=== PATIENT | male | born 1975 | race Two or more races ===

== ENCOUNTER 2021-04-04 15:06 | Inpatient (IN) | payer OTHER ==
[~2021-04-04] VITALS: Ht 172.7 cm; Wt 137.0 kg
[2021-04-04] MEDS: DOCUSATE SODIUM 100 MG CAPSULE PO SCH (09:00)
[2021-04-04] MEDS ORDERED: VANCOMYCIN HCL 1 GM/D5% WATER 200 ML IV ONE (16:30)
[2021-04-04] MEDS ORDERED: PIPERACILLIN/TAZO 3.375 GM/D5W 50 ML IV ONE (16:30)
[2021-04-04] MEDS ORDERED: 0.9% SODIUM CHLORIDE 10 ML SYRINGE IVP PRN (16:30)
[2021-04-04 17:07] LABS: BASOPHILS % (AUTO) 0.4 % (0.0-2.0); EOSINOPHILS % (AUTO) 0.5 % (1.0-6.0); HEMATOCRIT 26.7 % (41-53); HEMOGLOBIN 8.7 g/dL (13.5-17.5); LYMPHOCYTES # (AUTO) 0.8 K/uL (1.0-4.8); LYMPHOCYTES % (AUTO) 3.7 % (22.0-44.0); MEAN CORPUSCULAR HEMOGLOBIN 31.6 pg (26.0-34.0); MEAN CORPUSCULAR HGB CONC 32.7 G/dL (31.0-37.0); MEAN CORPUSCULAR VOLUME 97 fL (80-100); MONOCYTES # (AUTO) 1.2 K/uL (0.1-1.0); MONOCYTES % (AUTO) 5.6 % (2.0-9.0); NEUTROPHILS # (AUTO) 18.8 K/uL (1.8-7.7); PLATELET COUNT (AUTO) 346 K/uL (150-450); RED BLOOD CELL COUNT(AUTO) 2.77 MIL/uL (4.50-5.90); RED CELL DISTRIBUTION WIDTH 15.8 % (11.5-14.5)
[2021-04-04 17:08] LABS: NEUTROPHILS % (AUTO) 89.8 % (40.0-70.0)
[2021-04-04 17:24] LABS: ALBUMIN 2.6 g/dL (3.4-5.0); BILIRUBIN,TOTAL 0.7 mg/dL (0.1-1.0); CALCIUM, TOTAL 9.7 mg/dL (8.8-10.5); CREATININE 18.17 mg/dL (0.60-1.30); POTASSIUM 4.6 mmol/L (3.5-5.1); TOTAL PROTEIN, SERUM 7.7 g/dL (6.4-8.2)
[2021-04-04 17:41] LABS: INR 1.1 (0.9-1.1); PROTHROMBIN TIME 11.2 SEC (9.4-11.6)
[2021-04-04] MEDS ORDERED: ALBUTEROL SULFATE 2.5 MG/0.5 ML NEB SOLUTION NEB PRN (18:00)
[2021-04-04] MEDS ORDERED: IPRATROPIUM BROMIDE 0.5 MG/2.5 ML NEB SOLUTION NEB PRN (18:00)
[2021-04-04] MEDS ORDERED: ZOLPIDEM TARTRATE 5 MG TABLET PO PRN (18:00)
[2021-04-04] MEDS ORDERED: HYDROCODONE/ACETAMINOPHEN 5-325 MG TABLET PO PRN (18:00)
[2021-04-04] MEDS ORDERED: SODIUM CHLORIDE 0.9% 100 ML ONE (18:00)
[2021-04-04] MEDS ORDERED: IOHEXOL 350 MG/ML 150 ML VIAL ONE (18:00)
[2021-04-04] MEDS ORDERED: ACETAMINOPHEN 325 MG TABLET PO PRN (18:00)
[2021-04-04] MEDS ORDERED: BISACODYL 10 MG RECTAL RECTAL SUPPOSITORY PR PRN (18:00)
[2021-04-04] MEDS ORDERED: MAGNESIUM HYDROXIDE SUSPENSION 30 ML UDCUP PO PRN (18:00)
[2021-04-04] MEDS ORDERED: ONDANSETRON HCL 4 MG/2 ML VIAL IVP PRN (18:00)
[2021-04-04 18:15] LABS: COVID AG,FIA SOURCE NASOPHARYNGEAL
[2021-04-04] MEDS ORDERED: BUPIVACAINE HCL/PF 0.25% 30 ML VIAL ONE (20:29)
[2021-04-04] MEDS ORDERED: SODIUM CL IRRIG SOLN BAG 3,000 ML IRRIG ONE (20:29)
[2021-04-04] MEDS ORDERED: BUPIVACAINE HCL/PF 0.5% 30 ML VIAL ONE (20:29)
[2021-04-04] MEDS ORDERED: SODIUM CHLORIDE 0.9% 1,000 ML ONE (20:36)
[2021-04-04] MEDS ORDERED: CHLORHEXIDINE GLUCONATE 4% 118 ML TOPICAL LIQUID TP ONE ×2 (21:15→21:27)
[2021-04-04 22:25] VITALS: BP 147/62
[2021-04-04] MEDS: MORPHINE SULFATE 2 MG/ML SYRINGE IVP PRN (22:30)
[2021-04-04] MEDS: HEPARIN SODIUM,PORCINE 5,000 UNITS/ML VIAL SQ SCH (23:45)
[2021-04-05] MEDS: MORPHINE SULFATE 2 MG/ML SYRINGE IVP PRN ×4 (00:36→22:33)
[2021-04-05 04:15] VITALS: BP 103/38
[2021-04-05] MEDS ORDERED: ZOLPIDEM TARTRATE 5 MG TABLET PO PRN (04:15)
[2021-04-05] MEDS ORDERED: PIPERACILLIN/TAZO 3.375 GM/D5W 50 ML IV SCH (04:15)
[2021-04-05] MEDS ORDERED: BISACODYL 10 MG RECTAL RECTAL SUPPOSITORY PR PRN (04:15)
[2021-04-05] MEDS ORDERED: IPRATROPIUM BROMIDE 0.5 MG/2.5 ML NEB SOLUTION NEB PRN (04:15)
[2021-04-05] MEDS ORDERED: MAGNESIUM HYDROXIDE SUSPENSION 30 ML UDCUP PO PRN (04:15)
[2021-04-05] MEDS ORDERED: ONDANSETRON HCL 4 MG/2 ML VIAL IVP PRN (04:15)
[2021-04-05] MEDS ORDERED: ACETAMINOPHEN 325 MG TABLET PO PRN (04:15)
[2021-04-05] MEDS ORDERED: ALBUTEROL SULFATE 2.5 MG/0.5 ML NEB SOLUTION NEB PRN (04:15)
[2021-04-05] MEDS ORDERED: SUGAMMADEX SODIUM 200 MG/2 ML VIAL IVP ONE (05:28)
[2021-04-05] MEDS ORDERED: PHENYLEPHRINE HCL 10 MG/ML VIAL IVP ONE (05:28)
[2021-04-05] MEDS ORDERED: ROCURONIUM BROMIDE 10 MG/ML 5 ML VIAL IVP ONE (05:28)
[2021-04-05] MEDS ORDERED: PROPOFOL 1% 20 ML VIAL IVP ONE (05:28)
[2021-04-05] MEDS ORDERED: ONDANSETRON HCL 4 MG/2 ML VIAL IVP ONE (05:28)
[2021-04-05] MEDS ORDERED: LIDOCAINE/PF 2% 5 ML VIAL IM ONE (05:28)
[2021-04-05] MEDS ORDERED: VANCOMYCIN HCL 1 GM/D5% WATER 200 ML IV PRN (06:30)
[2021-04-05] MEDS ORDERED: PIPERACILLIN SODIUM/TAZOBACTAM 0.75 GM in DEXTROSE 5%-WATER 50 ML IV PRN (06:30)
[2021-04-05] MEDS: PIPERACILLIN SODIUM/TAZOBACTAM 2.25 GM in DEXTROSE 5%-WATER 50 ML IV SCH ×2 (06:42→22:32)
[2021-04-05] MEDS ORDERED: VANCOMYCIN HCL 1 GM/D5% WATER 200 ML IV ONE (07:00)
[2021-04-05 07:47] VITALS: BP 91/52
[2021-04-05] MEDS ORDERED: HEPARIN SODIUM,PORCINE 5,000 UNITS/ML VIAL SQ SCH (08:00)
[2021-04-05] MEDS ORDERED: PANTOPRAZOLE SODIUM 40 MG/VIAL IVP SCH (09:00)
[2021-04-05] MEDS: DOCUSATE SODIUM 100 MG CAPSULE PO SCH ×2 (09:00→21:00)
[2021-04-05] MEDS: HEPARIN SODIUM,PORCINE 5,000 UNITS/ML VIAL SQ SCH ×2 (09:03→15:05)
[2021-04-05] MEDS: PANTOPRAZOLE SODIUM 40 MG/VIAL IVP SCH (09:03)
[2021-04-05] MEDS: OxyCODONE HCL/ACETAMINOPHEN 5-325 MG TABLET PO PRN ×2 (09:48→15:05)
[2021-04-05 11:25] VITALS: BP 101/48
[2021-04-05] MEDS: SEVELAMER CARBONATE 800 MG TABLET PO SCH ×2 (12:15→17:52)
[2021-04-05] MEDS: VITAMIN B COMP/VIT C/FOLIC ACID CAPSULE PO SCH (12:15)
[2021-04-05 16:00] VITALS: BP 124/59
[2021-04-05 17:05] LABS: BASOPHILS % (AUTO) 0.9 % (0.0-2.0); EOSINOPHILS % (AUTO) 2.1 % (1.0-6.0); HEMATOCRIT 21.4 % (41-53); HEMOGLOBIN 7.1 g/dL (13.5-17.5); LYMPHOCYTES # (AUTO) 1.2 K/uL (1.0-4.8); LYMPHOCYTES % (AUTO) 8.4 % (22.0-44.0); MEAN CORPUSCULAR HEMOGLOBIN 32.1 pg (26.0-34.0); MEAN CORPUSCULAR HGB CONC 33.1 G/dL (31.0-37.0); MEAN CORPUSCULAR VOLUME 97 fL (80-100); MONOCYTES # (AUTO) 0.9 K/uL (0.1-1.0); MONOCYTES % (AUTO) 6.2 % (2.0-9.0); NEUTROPHILS # (AUTO) 12.1 K/uL (1.8-7.7); NEUTROPHILS % (AUTO) 82.4 % (40.0-70.0); PLATELET COUNT (AUTO) 322 K/uL (150-450); RED BLOOD CELL COUNT(AUTO) 2.21 MIL/uL (4.50-5.90); RED CELL DISTRIBUTION WIDTH 15.8 % (11.5-14.5)
[2021-04-05 17:09] LABS: CREATININE 19.01 mg/dL (0.60-1.30); POTASSIUM 5.4 mmol/L (3.5-5.1)
[2021-04-05 17:14] LABS: TOTAL PROTEIN, SERUM 6.7 g/dL (6.4-8.2)
[2021-04-05] MEDS: CINACALCET HCL 30 MG TABLET PO SCH (17:52)
[2021-04-05] MEDS ORDERED: SODIUM CHLORIDE 0.9% 1,000 ML ONE (18:11)
[2021-04-05] MEDS ORDERED: DiphenhydrAMINE HCL 50 MG/ML VIAL IVP ONE (19:15)
[2021-04-06] VITALS (12 sets, daily range): BP systolic 90–134; BP diastolic 45–68
[2021-04-06] MEDS: HEPARIN SODIUM,PORCINE 5,000 UNITS/ML VIAL SQ SCH ×4 (00:15→23:43)
[2021-04-06] MEDS: MORPHINE SULFATE 2 MG/ML SYRINGE IVP PRN ×7 (00:26→22:26)
[2021-04-06 06:05] LABS: BASOPHILS % (AUTO) 0.9 % (0.0-2.0); EOSINOPHILS % (AUTO) 2.8 % (1.0-6.0); LYMPHOCYTES # (AUTO) 0.9 K/uL (1.0-4.8); LYMPHOCYTES % (AUTO) 7.7 % (22.0-44.0); MEAN CORPUSCULAR HEMOGLOBIN 31.7 pg (26.0-34.0); MEAN CORPUSCULAR HGB CONC 32.4 G/dL (31.0-37.0); MEAN CORPUSCULAR VOLUME 98 fL (80-100); MONOCYTES # (AUTO) 0.9 K/uL (0.1-1.0); MONOCYTES % (AUTO) 7.7 % (2.0-9.0); NEUTROPHILS # (AUTO) 9.5 K/uL (1.8-7.7); NEUTROPHILS % (AUTO) 80.9 % (40.0-70.0); PLATELET COUNT (AUTO) 349 K/uL (150-450); RED BLOOD CELL COUNT(AUTO) 2.03 MIL/uL (4.50-5.90); RED CELL DISTRIBUTION WIDTH 16.1 % (11.5-14.5)
[2021-04-06] MEDS ORDERED: FentaNYL CITRATE PF 100 MCG/2 ML VIAL IVP ONE (06:43)
[2021-04-06] MEDS: PIPERACILLIN SODIUM/TAZOBACTAM 2.25 GM in DEXTROSE 5%-WATER 50 ML IV SCH ×2 (06:50→18:24)
[2021-04-06 07:00] LABS: HEMATOCRIT 19.8 % (41-53); HEMOGLOBIN 6.4 g/dL (13.5-17.5)
[2021-04-06 07:10] LABS: BILIRUBIN,TOTAL 1.1 mg/dL (0.1-1.0); CALCIUM, TOTAL 8.8 mg/dL (8.8-10.5); CREATININE 9.9 mg/dL (0.60-1.30); MAGNESIUM 2.2 mg/dL (1.80-2.40); PHOSPHORUS 7.1 mg/dL (2.5-4.9); POTASSIUM 4.3 mmol/L (3.5-5.1); TOTAL PROTEIN, SERUM 7.1 g/dL (6.4-8.2)
[2021-04-06 07:22] LABS: VANCOMYCIN,RANDOM 18.5 mcg/mL (25.0-50.0)
[2021-04-06] MEDS: OxyCODONE HCL/ACETAMINOPHEN 5-325 MG TABLET PO PRN (08:16)
[2021-04-06] MEDS: SEVELAMER CARBONATE 800 MG TABLET PO SCH ×3 (08:16→18:24)
[2021-04-06] MEDS: VITAMIN B COMP/VIT C/FOLIC ACID CAPSULE PO SCH (08:16)
[2021-04-06] MEDS: PANTOPRAZOLE SODIUM 40 MG/VIAL IVP SCH (08:17)
[2021-04-06] MEDS: DOCUSATE SODIUM 100 MG CAPSULE PO SCH ×2 (08:17→21:00)
[2021-04-06] MEDS ORDERED: EPOETIN ALFA 10,000 UNITS/ML 2 ML VIAL SQ SCH (09:00)
[2021-04-06] MEDS ORDERED: SODIUM CHLORIDE 0.9% 1,000 ML ONE (10:04)
[2021-04-06] MEDS ORDERED: VANCOMYCIN HCL 1 GM/D5% WATER 200 ML IV ONE (14:00)
[2021-04-06] MEDS: CINACALCET HCL 30 MG TABLET PO SCH (19:22)
[2021-04-07 00:36] VITALS: BP 120/59
[2021-04-07] MEDS: MORPHINE SULFATE 2 MG/ML SYRINGE IVP PRN (02:02)
[2021-04-07 03:45] VITALS: BP 127/50
[2021-04-07] MEDS: PIPERACILLIN SODIUM/TAZOBACTAM 2.25 GM in DEXTROSE 5%-WATER 50 ML IV SCH (06:06)
[2021-04-07 06:47] LABS: BASOPHILS % (AUTO) 0.7 % (0.0-2.0); EOSINOPHILS % (AUTO) 3.4 % (1.0-6.0); HEMATOCRIT 24.7 % (41-53); HEMOGLOBIN 8.1 g/dL (13.5-17.5); LYMPHOCYTES # (AUTO) 1.2 K/uL (1.0-4.8); MEAN CORPUSCULAR HEMOGLOBIN 32.2 pg (26.0-34.0); MEAN CORPUSCULAR HGB CONC 32.9 G/dL (31.0-37.0); MEAN CORPUSCULAR VOLUME 98 fL (80-100); MONOCYTES # (AUTO) 0.8 K/uL (0.1-1.0); MONOCYTES % (AUTO) 8.6 % (2.0-9.0); NEUTROPHILS # (AUTO) 7.3 K/uL (1.8-7.7); NEUTROPHILS % (AUTO) 75.3 % (40.0-70.0); PLATELET COUNT (AUTO) 342 K/uL (150-450); RED BLOOD CELL COUNT(AUTO) 2.53 MIL/uL (4.50-5.90); RED CELL DISTRIBUTION WIDTH 16.1 % (11.5-14.5)
[2021-04-07 07:02] LABS: ALBUMIN 2.2 g/dL (3.4-5.0); BILIRUBIN,TOTAL 1.4 mg/dL (0.1-1.0); CALCIUM, TOTAL 8.6 mg/dL (8.8-10.5); CREATININE 7.94 mg/dL (0.60-1.30); POTASSIUM 3.9 mmol/L (3.5-5.1); TOTAL PROTEIN, SERUM 7.3 g/dL (6.4-8.2)
[2021-04-07 07:32] VITALS: BP 109/61
[2021-04-07] MEDS: SEVELAMER CARBONATE 800 MG TABLET PO SCH ×3 (08:21→18:24)
[2021-04-07] MEDS: PANTOPRAZOLE SODIUM 40 MG/VIAL IVP SCH (08:21)
[2021-04-07] MEDS: DOCUSATE SODIUM 100 MG CAPSULE PO SCH (08:22)
[2021-04-07] MEDS: HEPARIN SODIUM,PORCINE 5,000 UNITS/ML VIAL SQ SCH ×2 (08:22→16:00)
[2021-04-07] MEDS: VITAMIN B COMP/VIT C/FOLIC ACID CAPSULE PO SCH (08:22)
[2021-04-07 13:06] VITALS: BP 117/62
[2021-04-07] MEDS ORDERED: SODIUM CL IRRIG SOLN BOTTLE 250 ML IRRIG ONE (16:02)
[2021-04-07] MEDS ORDERED: SODIUM CHLORIDE 0.9% IRRIG BTL 1,000 ML IRRIG ONE (16:04)
[2021-04-07 16:48] VITALS: BP 110/64
[2021-04-07] MEDS: CINACALCET HCL 30 MG TABLET PO SCH (18:23)
[2021-04-08] MEDS ORDERED: EPOETIN ALFA 10,000 UNITS/ML VIAL SQ SCH (09:00)
== END 2021-04-07 19:45 | DRG 579 ==
LOC: EMS 15:06 → 5S 19:53
PROVIDERS: ADMIT Hospitalist; ATTEND Hospitalist
PROC: 0V950ZZ Drainage of Scrotum, Open Approach (ICD-10-PCS; 2021-04-04)
PROC: 0J9B0ZZ Drainage of Perineum Subcutaneous Tissue and Fascia, Open Approach (ICD-10-PCS; principal; 2021-04-04 21:00)
PROC: 5A1D70Z Performance of Urinary Filtration, Intermittent, Less than 6 Hours Per Day (ICD-10-PCS; 2021-04-05)
PROC: 30233N1 Transfusion of Nonautologous Red Blood Cells into Peripheral Vein, Percutaneous Approach (ICD-10-PCS; 2021-04-06)
PROC: 5A1D70Z Performance of Urinary Filtration, Intermittent, Less than 6 Hours Per Day (ICD-10-PCS; 2021-04-06)
DX: L02.215 Cutaneous abscess of perineum (principal); N18.6 End stage renal disease; E43 Unspecified severe protein-calorie malnutrition; T85.79XA Infection and inflammatory reaction due to other internal prosthetic devices, implants and grafts, initial encounter; I12.0 Hypertensive chronic kidney disease with stage 5 chronic kidney disease or end stage renal disease; N25.81 Secondary hyperparathyroidism of renal origin; R65.10 Systemic inflammatory response syndrome (SIRS) of non-infectious origin without acute organ dysfunction; Z68.42 Body mass index [BMI] 45.0-49.9, adult; L02.214 Cutaneous abscess of groin; N49.3 Fournier gangrene; D63.1 Anemia in chronic kidney disease; E11.22 Type 2 diabetes mellitus with diabetic chronic kidney disease; N49.2 Inflammatory disorders of scrotum; Z99.2 Dependence on renal dialysis; Z91.15 Patient's noncompliance with renal dialysis; E83.39 Other disorders of phosphorus metabolism; E66.9 Obesity, unspecified; N28.9 Disorder of kidney and ureter, unspecified; Y83.8 Other surgical procedures as the cause of abnormal reaction of the patient, or of later complication, without mention of misadventure at the time of the procedure; Y92.89 Other specified places as the place of occurrence of the external cause; Z20.822 Contact with and (suspected) exposure to COVID-19
CPT/HCPCS: 71045; 74177; 80053; 80202; 83605; 83735; 84100; 85014; 85018; 85025; 85610; 85730; 86850; 86900; 86901; 86923; 87040; 87070; 87081; 87205; 87340; 90935; 93005; 99291; A9575; C9113; J0885; J1200; J1644; J2270; J2370; J2405; J2543; J2704; J3010; J3370; J3490; J7030; J7050; J7060; P9016; 36415-L1; 36415-TC

== ENCOUNTER 2025-03-05 13:20 | Inpatient (IN) | payer MEDICARE, OTHER ==
[~2025-03-05] VITALS: Ht 170.2 cm; Wt 141.8 kg
[2025-03-05] MEDS ORDERED: VANCOMYCIN 1.25 GM/WATER(PEG) 250 ML IV ONE (14:15)
[2025-03-05] MEDS ORDERED: SODIUM CHLORIDE 0.9% 100 ML ONE (14:16)
[2025-03-05] MEDS ORDERED: IOHEXOL 350 MG/ML 100 ML VIAL ONE (14:16)
[2025-03-05] MEDS ORDERED: 0.9% SODIUM CHLORIDE 10 ML SYRINGE IVP ONE (14:17)
[2025-03-05 14:44] LABS: BASOPHILS % (AUTO) 0.8 % (0.0-2.0); EOSINOPHILS % (AUTO) 2.5 % (1.0-6.0); HEMATOCRIT 30.8 % (41-53); HEMOGLOBIN 10.3 g/dL (13.5-17.5); LYMPHOCYTES # (AUTO) 1.3 K/uL (1.0-4.8); LYMPHOCYTES % (AUTO) 7.5 % (22.0-44.0); MEAN CORPUSCULAR HEMOGLOBIN 32.5 pg (26.0-34.0); MEAN CORPUSCULAR HGB CONC 33.5 G/dL (31.0-37.0); MEAN CORPUSCULAR VOLUME 97 fL (80-100); MONOCYTES # (AUTO) 1.4 K/uL (0.1-1.0); MONOCYTES % (AUTO) 8.4 % (2.0-9.0); NEUTROPHILS # (AUTO) 13.8 K/uL (1.8-7.7); NEUTROPHILS % (AUTO) 80.8 % (40.0-70.0); PLATELET COUNT (AUTO) 276 K/uL (150-450); RED BLOOD CELL COUNT(AUTO) 3.19 MIL/uL (4.50-5.90); RED CELL DISTRIBUTION WIDTH 13.6 % (11.5-14.5); WHITE BLOOD COUNT (AUTO) 17.1 K/uL (4.5-11.0)
[2025-03-05 14:54] LABS: CREATININE 6.27 mg/dL (0.60-1.30); POTASSIUM 3.2 mmol/L (3.5-5.1)
[2025-03-05] MEDS: VANCOMYCIN HCL 1.25 GM in DEXTROSE 5%-WATER 250 ML IV ONE (15:11)
[2025-03-05 15:18] LABS: LACTIC ACID 1.1 mmol/L (0.4-2.0)
[2025-03-05] MEDS: *CLINICAL-MEROPENEM DOSING CLINICAL ONE (17:45)
[2025-03-05] MEDS: CLINDAMYCIN 900 MG/D5% WATER 50 ML IV SCH (18:34)
[2025-03-05] MEDS: MEROPENEM 500 MG in SODIUM CHLORIDE 0.9% 50 ML IV SCH (19:07)
[2025-03-05] MEDS ORDERED: BISACODYL 10 MG RECTAL RECTAL SUPPOSITORY PR PRN (19:45)
[2025-03-05] MEDS ORDERED: MORPHINE SULFATE 2 MG/ML SYRINGE IVP PRN (19:45)
[2025-03-05] MEDS ORDERED: MAGNESIUM HYDROXIDE SUSPENSION 30 ML UDCUP PO PRN (19:45)
[2025-03-05] MEDS ORDERED: ONDANSETRON HCL 4 MG/2 ML VIAL IVP PRN (19:45)
[2025-03-05] MEDS ORDERED: ACETAMINOPHEN 325 MG TABLET PO PRN (19:45)
[2025-03-05] MEDS ORDERED: VANCOMYCIN 1GM/WATER(PEG/NADA) 200 ML IV PRN (20:00)
[2025-03-05] MEDS: HYDROCODONE/ACETAMINOPHEN 5-325 MG TABLET PO PRN (20:33)
[2025-03-05] MEDS: ZOLPIDEM TARTRATE 5 MG TABLET PO PRN (20:33)
[2025-03-05] MEDS: DOCUSATE SODIUM 100 MG CAPSULE PO SCH (20:33)
[2025-03-05 20:44] VITALS: BP 125/72; PULSE 78; RESP 19; TEMP 98.2; O2SAT 99
[2025-03-05 20:45] VITALS: BP 125/79; PULSE 78; RESP 19; TEMP 98.2; O2SAT 98
[2025-03-06] VITALS (12 sets, daily range): BP systolic 100–171; BP diastolic 43–78; PULSE 73–93; RESP 18–19; TEMP 97.5–98.2; O2SAT 98–99
[2025-03-06] MEDS: HEPARIN SODIUM,PORCINE 5,000 UNITS/ML VIAL SQ SCH
[2025-03-06] MEDS ORDERED: SODIUM CHLORIDE 0.9% 250 ML IV ONE (02:20)
[2025-03-06] MEDS: PANTOPRAZOLE SODIUM 40 MG DR TABLET PO SCH (08:05)
[2025-03-06 09:43] LABS: BASOPHILS % (AUTO) 1.2 % (0.0-2.0); EOSINOPHILS % (AUTO) 3.6 % (1.0-6.0); HEMATOCRIT 31.9 % (41-53); HEMOGLOBIN 10.8 g/dL (13.5-17.5); LYMPHOCYTES # (AUTO) 0.9 K/uL (1.0-4.8); LYMPHOCYTES % (AUTO) 8.9 % (22.0-44.0); MEAN CORPUSCULAR HEMOGLOBIN 32.9 pg (26.0-34.0); MEAN CORPUSCULAR HGB CONC 33.8 G/dL (31.0-37.0); MEAN CORPUSCULAR VOLUME 97 fL (80-100); MONOCYTES # (AUTO) 0.5 K/uL (0.1-1.0); MONOCYTES % (AUTO) 4.3 % (2.0-9.0); NEUTROPHILS # (AUTO) 8.6 K/uL (1.8-7.7); PLATELET COUNT (AUTO) 249 K/uL (150-450); RED BLOOD CELL COUNT(AUTO) 3.28 MIL/uL (4.50-5.90); RED CELL DISTRIBUTION WIDTH 14.1 % (11.5-14.5); WHITE BLOOD COUNT (AUTO) 10.5 K/uL (4.5-11.0)
[2025-03-06] MEDS: CINACALCET HCL 30 MG TABLET PO SCH (09:45)
[2025-03-06] MEDS: FOLIC ACID/VIT B COMPLEX AND C TABLET PO SCH (09:46)
[2025-03-06 09:59] LABS: CALCIUM, TOTAL 8.9 mg/dL (8.8-10.5); CREATININE 8.24 mg/dL (0.60-1.30); POTASSIUM 3.7 mmol/L (3.5-5.1)
[2025-03-06] MEDS ORDERED: DiphenhydrAMINE HCL 50 MG/ML VIAL ONE (12:00)
[2025-03-06] MEDS: SEVELAMER CARBONATE 800 MG TABLET PO SCH (12:00)
[2025-03-06] MEDS: DiphenhydrAMINE HCL 50 MG/ML VIAL IVP PRN (14:13)
[2025-03-06] MEDS: SODIUM THIOSULFATE IV SCH (16:16)
[2025-03-06] MEDS: CONTAINER EMPTY IV SCH (16:16)
[2025-03-06] MEDS: SODIUM CHLORIDE 0.9% IV SCH (16:16)
[2025-03-06] MEDS: VANCOMYCIN 1GM/WATER(PEG/NADA) 200 ML IV ONE (17:56)
[2025-03-06] MEDS ORDERED: CONTAINER EMPTY IV SCH (20:00)
[2025-03-06] MEDS ORDERED: SODIUM THIOSULFATE IV SCH (20:00)
[2025-03-06] MEDS: HYDROCODONE/ACETAMINOPHEN 5-325 MG TABLET PO ONE (20:20)
[2025-03-07 04:12] VITALS: BP 140/92; PULSE 83; RESP 20; TEMP 97.9; O2SAT 100
[2025-03-07 08:00] VITALS: BP 134/85; PULSE 84; RESP 18; TEMP 98; O2SAT 99
[2025-03-07 08:52] LABS: BASOPHILS % (AUTO) 0.6 % (0.0-2.0); EOSINOPHILS % (AUTO) 4.5 % (1.0-6.0); HEMATOCRIT 33.4 % (41-53); HEMOGLOBIN 11.2 g/dL (13.5-17.5); LYMPHOCYTES # (AUTO) 1.2 K/uL (1.0-4.8); LYMPHOCYTES % (AUTO) 9.8 % (22.0-44.0); MEAN CORPUSCULAR HGB CONC 33.6 G/dL (31.0-37.0); MEAN CORPUSCULAR VOLUME 98 fL (80-100); MONOCYTES # (AUTO) 0.9 K/uL (0.1-1.0); NEUTROPHILS # (AUTO) 9.6 K/uL (1.8-7.7); NEUTROPHILS % (AUTO) 78.1 % (40.0-70.0); PLATELET COUNT (AUTO) 277 K/uL (150-450); RED CELL DISTRIBUTION WIDTH 13.8 % (11.5-14.5); WHITE BLOOD COUNT (AUTO) 12.3 K/uL (4.5-11.0)
[2025-03-07 09:06] LABS: CALCIUM, TOTAL 9.1 mg/dL (8.8-10.5); CREATININE 6.68 mg/dL (0.60-1.30); POTASSIUM 4.5 mmol/L (3.5-5.1)
[2025-03-07] MEDS: LORazepam 2 MG/ML VIAL IVP ONE (14:40)
[2025-03-07 20:42] VITALS: BP 122/74; PULSE 86; RESP 20; TEMP 97.9; O2SAT 99
[2025-03-08] VITALS (14 sets, daily range): BP systolic 97–139; BP diastolic 39–96; PULSE 67–90; RESP 18–20; TEMP 97.7–98; O2SAT 95–98
[2025-03-08 08:56] LABS: HEMATOCRIT 33.4 % (41-53); HEMOGLOBIN 11.3 g/dL (13.5-17.5); LYMPHOCYTES # (AUTO) 1.1 K/uL (1.0-4.8); LYMPHOCYTES % (AUTO) 13.8 % (22.0-44.0); MEAN CORPUSCULAR HEMOGLOBIN 32.8 pg (26.0-34.0); MEAN CORPUSCULAR HGB CONC 33.7 G/dL (31.0-37.0); MEAN CORPUSCULAR VOLUME 97 fL (80-100); MONOCYTES # (AUTO) 0.5 K/uL (0.1-1.0); MONOCYTES % (AUTO) 6.5 % (2.0-9.0); NEUTROPHILS % (AUTO) 73.7 % (40.0-70.0); PLATELET COUNT (AUTO) 283 K/uL (150-450); RED BLOOD CELL COUNT(AUTO) 3.43 MIL/uL (4.50-5.90); WHITE BLOOD COUNT (AUTO) 8.1 K/uL (4.5-11.0)
[2025-03-08 09:05] LABS: CALCIUM, TOTAL 8.7 mg/dL (8.8-10.5); CREATININE 9.1 mg/dL (0.60-1.30); POTASSIUM 4.4 mmol/L (3.5-5.1)
[2025-03-08 09:10] LABS: MAGNESIUM 2.4 mg/dL (1.80-2.40)
[2025-03-08] MEDS ORDERED: SODIUM CHLORIDE 0.9% 2,000 ML ONE (11:33)
[2025-03-08] MEDS ORDERED: DiphenhydrAMINE HCL 50 MG/ML VIAL ONE (12:00)
[2025-03-08] MEDS: LORazepam 2 MG/ML VIAL IVP ONE (18:30)
[2025-03-09 06:37] VITALS: BP 124/72; PULSE 80; RESP 18; TEMP 98.2; O2SAT 98
[2025-03-09 07:00] VITALS: BP 121/70; PULSE 77; RESP 19; TEMP 98; O2SAT 98
[2025-03-09 08:23] LABS: ALBUMIN 2.8 g/dL (3.4-5.0); BILIRUBIN,TOTAL 0.7 mg/dL (0.1-1.0); CALCIUM, TOTAL 8.8 mg/dL (8.8-10.5); CREATININE 8.03 mg/dL (0.60-1.30); POTASSIUM 4.4 mmol/L (3.5-5.1); TOTAL PROTEIN, SERUM 8.1 g/dL (6.4-8.2)
[2025-03-09] MEDS: VANCOMYCIN 1GM/WATER(PEG/NADA) 200 ML IV ONE (08:24)
[2025-03-09 11:07] LABS: PARATHYROID HORMONE INTACT 342 pg/mL (15-65)
[2025-03-09] MEDS ORDERED: VANCOMYCIN 750 MG/WATER(PEG) 150 ML IV ONE (12:00)
[2025-03-09 15:00] VITALS: BP 102/50; PULSE 89; RESP 19; TEMP 97.9; O2SAT 99
[2025-03-09] MEDS ORDERED: SODIUM CHLORIDE 0.9% 250 ML IV ONE (18:07)
[2025-03-09 20:45] VITALS: BP 134/86; PULSE 87; RESP 20; TEMP 97.9; O2SAT 97
[2025-03-10 05:38] VITALS: BP 110/96; PULSE 82; RESP 18; TEMP 97.7; O2SAT 97
[2025-03-10] MEDS ORDERED: CINA30TA32 PO (13:25)
[2025-03-10] MEDS ORDERED: FOLI0.8T54 PO (13:26)
[2025-03-10] MEDS ORDERED: MERO1VIA27 IV (13:28)
[2025-03-10] MEDS ORDERED: SEVE800T38 PO (13:29)
[2025-03-10] MEDS ORDERED: DOCU-385 PO (13:30)
[2025-03-10 16:03] VITALS: BP 107/97; PULSE 80; RESP 20; TEMP 97.7; O2SAT 98
== END 2025-03-10 17:40 | DRG 602 ==
LOC: EMS 13:23 → EDH 16:12 → 4E 19:46
PROVIDERS: ADMIT Internal Medicine; ATTEND Internal Medicine
PROC: 5A1D70Z Performance of Urinary Filtration, Intermittent, Less than 6 Hours Per Day (ICD-10-PCS; principal; 2025-03-06)
PROC: 5A1D70Z Performance of Urinary Filtration, Intermittent, Less than 6 Hours Per Day (ICD-10-PCS; 2025-03-08)
DX: L03.116 Cellulitis of left lower limb (principal); N18.6 End stage renal disease; L97.929 Non-pressure chronic ulcer of unspecified part of left lower leg with unspecified severity; Z68.42 Body mass index [BMI] 45.0-49.9, adult; R65.10 Systemic inflammatory response syndrome (SIRS) of non-infectious origin without acute organ dysfunction; D63.8 Anemia in other chronic diseases classified elsewhere; E83.59 Other disorders of calcium metabolism; I70.202 Unspecified atherosclerosis of native arteries of extremities, left leg; B96.89 Other specified bacterial agents as the cause of diseases classified elsewhere; D63.1 Anemia in chronic kidney disease; I95.9 Hypotension, unspecified; E87.6 Hypokalemia; E66.01 Morbid (severe) obesity due to excess calories; E83.39 Other disorders of phosphorus metabolism; Z99.2 Dependence on renal dialysis
CPT/HCPCS: 73701; 73718; 76881; 80048; 80053; 80202; 82550; 83605; 83735; 83970; 84100; 85025; 87040; 87070; 87081; 87186; 87205; 87340; 90935; 97116; 97162; 99285; G0378; J1200; J1644; J2060; J2185; J3490; J7030; J7050; J7060